=== PATIENT | female | born 1990 | race Native Hawaiian/Other Pacific Islander ===

== ENCOUNTER 2017-02-26 21:48 | Outpatient (CLI) | payer OTHER | END 2017-02-26 21:57 | disposition short-term general hospital (02) | LOC: AMB 21:48 | DX: M25.572 Pain in left ankle and joints of left foot (principal); W17.89XA Other fall from one level to another, initial encounter; Y92.028 Other place in mobile home as the place of occurrence of the external cause | CPT/HCPCS: A0425; A0429 ==

== ENCOUNTER 2017-02-26 22:05 | Emergency (ER) | payer OTHER ==
[~2017-02-26] VITALS: Ht 149.9 cm; Wt 81.6 kg
== END 2017-02-27 01:33 | disposition home or self-care (01) ==
LOC: ED 22:05
DX: S93.492A Sprain of other ligament of left ankle, initial encounter (principal); W10.8XXA Fall (on) (from) other stairs and steps, initial encounter; Y93.89 Activity, other specified; Y92.017 Garden or yard in single-family (private) house as the place of occurrence of the external cause; F10.10 Alcohol abuse, uncomplicated
CPT/HCPCS: 36415; 80320; 99283; J1885; L4350

== ENCOUNTER 2022-09-07 23:45 | Emergency (ER) | payer OTHER ==
[~2022-09-07] VITALS: Ht 149.9 cm; Wt 127.0 kg
[2022-09-08] VITALS: BP 151/92; TEMP 97.6
== END 2022-09-08 01:30 | disposition home or self-care (01) ==
LOC: ED 23:45
DX: N89.8 Other specified noninflammatory disorders of vagina (principal); Z20.2 Contact with and (suspected) exposure to infections with a predominantly sexual mode of transmission
CPT/HCPCS: 81000; 87086; 87088; 87490; 87590; 96372; 99283; J0696